=== PATIENT | female | born 1960 | race African-American/Black ===

== ENCOUNTER → 2017-03-15 | Outpatient (CLI) | payer OTHER ==
--- NOTE | 2017-03-15 14:39 | XR ---
EXAMINATION TYPE: XR lumbar spine 2 or 3V DATE OF EXAM: 03/15/2017 COMPARISON: NONE HISTORY: Lumbar strain TECHNIQUE: 3 view lumbar spine FINDINGS: Disc heights are preserved. Vertebral body heights are preserved. Alignment is normal. Ther e 5 lumbar-type vertebral bodies. Pedicles are intact. IMPRESSION: 1. Normal three-view lumbar spine
== END ==
LOC: RADXRMAIN 14:13
PROVIDERS: ATTEND Emergency Medicine
DX: S39.012A Strain of muscle, fascia and tendon of lower back, initial encounter (principal)
CPT/HCPCS: 72100

== ENCOUNTER 2018-07-30 21:05 | Emergency (ER) | payer OTHER ==
[2018-07-30 21:10] VITALS: TEMP 98.6
[2018-07-30 21:40] VITALS: RESP 16
--- NOTE | 2018-07-30 21:41 | ED ---
Chest Pain HPI - General Chief Complaint: Chest Pain Stated Complaint: Chest pressure Time Seen by Provider: 07/30/18 21:17 Source: patient, family Mode of arrival: ambulatory Limitations: no limitations - History of Present Illness Initial Comments: This patient is a 58-year-old woman who presents to be evaluated for substernal chest pain. The patient states that she has not really felt like her usual self for going on 3 weeks. She noted some pains in the right shoulder and into the right arm. She describes them as aching, intermittent, moderate intensity. She states that for 2 weeks she has been having some intermittent substernal pain that she initially thought was indigestion but she now is not sure. She states that it is not related to food. She is not having any sour brash. The patient's had had a heart attack, and prior to that his only complaint was indigestion, so she felt she should be checked to ensure that she was not having heart attack. MD Complaint: chest pain -: week(s) Onset: during rest Pain Location: substernal Severity: moderate Quality: aching Consistency: intermittent Improves With: nothing Worsens With: nothing Treatments Prior to Arrival: none - Related Data Home Medications Medication Instructions Recorded Confirmed Citalopram Hydrobromide [CeleXA] 20 mg PO DAILY 07/30/18 07/30/18 Losartan/Hydrochlorothiazide 1 each PO DAILY 07/30/18 07/30/18 [Losartan-Hctz 100-12.5 mg Tab] buPROPion [Wellbutrin] 75 mg PO BID 07/30/18 07/30/18 metFORMIN HCL [Glucophage Xr] 750 mg PO PC-SUPPER 07/30/18 07/30/18 Allergies Allergy/AdvReac Type Severity Reaction Status Date / Time codeine Allergy Nausea & Verified 07/30/18 21:10 Vomiting Review of Systems ROS Statement: Those systems with pertinent positive or pertinent negative responses have been documented in the HPI. ROS Other: All systems not noted in ROS Statement are negative. Constitutional: Denies: fever, chills Respiratory: Denies: cough, dyspnea Cardiovascular: Reports: chest pain. Denies: palpitations, dyspnea on exertion , orthopnea, edema, syncope Gastrointestinal: Denies: abdominal pain, nausea, vomiting, melena, hematochezia Musculoskeletal: Reports: back pain Skin: Denies: rash Neurological: Denies: weakness, numbness EKG Findings - EKG Results: EKG: interpreted by ERMD, sinus rhythm (Rate 61 bpm), normal axis, normal QRS - Blocks, Verner, Hypertrophy, ST Abn: Repolarization changes or abnormalities: nonspecific abnormality, ST segment, and/or T wave Past Medical History Past Medical History: Diabetes Mellitus, Hypertension History of Any Multi-Drug Resistant Organisms: None Reported Past Surgical History: Section, Cholecystectomy, Hysterectomy Past Psychological History: No Psychological Hx Reported Smoking Status: Current every day smoker Past Alcohol Use History: None Reported Past Drug Use History: None Reported General Exam Limitations: no limitations General appearance: alert, in no apparent distress Head exam: Present: atraumatic, normocephalic Eye exam: Present: normal appearance. Absent: scleral icterus, conjunctival injection Neck exam: Present: normal inspection, full ROM Respiratory exam: Present: normal lung sounds bilaterally. Absent: respiratory distress, wheezes, rales, rhonchi, stridor Cardiovascular Exam: Present: regular rate, normal rhythm, normal heart sounds. Absent: systolic murmur, diastolic murmur GI/Abdominal exam: Present: soft. Absent: distended, tenderness, guarding, rebound, rigid, mass Extremities exam: Present: normal inspection, normal capillary refill. Absent: pedal edema, calf tenderness Back exam: Present: normal inspection. Absent: CVA tenderness (R), CVA tenderness (L) Neurological exam: Present: alert Skin exam: Present: warm, dry, intact, normal color. Absent: rash Course Vital Signs 07/30/18 07/30/18 07/30/18 21:06 21:20 21:30 Temperature 98.6 F Pulse Rate 74 63 Respiratory 20 16 16 Rate Blood Pressure 183/84 O2 Sat by Pulse 100 100 98 Oximetry 07/30/18 07/30/18 07/30/18 22:00 22:30 22:33 Temperature Pulse Rate 59 L 67 55 L Respiratory 16 15 16 Rate Blood Pressure 176/84 O2 Sat by Pulse 97 99 97 Oximetry 07/31/18 00:11 Temperature Pulse Rate 75 Respiratory 16 Rate Blood Pressure 167/84 O2 Sat by Pulse 100 Oximetry Disposition Clinical Impression: Chest pain Disposition: HOME SELF-CARE Condition: Good Instructions: Chest Pain (ED) Is patient prescribed a controlled substance at d/c from ED?: No Referrals: Denise Menezes MD [Primary Care Provider] - 1-2 days
[2018-07-30] MEDS ORDERED: ASPIRIN 81 MG PO STA (21:50)
[2018-07-30 22:00] LABS: Basophils # (A) 0.1 k/uL (0-0.2); Basophils % (A) 1 %; Eosinophils # (A) 0.2 k/uL (0-0.7); Eosinophils % (A) 3 %; HCT 39.1 % (34.0-46.0); HGB 12.8 gm/dL (11.4-16.0); Lymphocytes # (A) 2.9 k/uL (1.0-4.8); Lymphocytes % (A) 43 %; MCH 28.6 pg (25.0-35.0); MCHC 32.8 g/dL (31.0-37.0); MCV 87.3 fL (80.0-100.0); Mean Platelet Volume 7.3; Monocytes # (A) 0.5 k/uL (0-1.0); Monocytes % (A) 7 %; Neutrophils % (A) 44 %; Platelet Count 250 k/uL (150-450); RBC 4.48 m/uL (3.80-5.40); RDW 14.5 % (11.5-15.5); WBC 6.7 k/uL (3.8-10.6)
--- NOTE | 2018-07-30 22:12 | XR ---
EXAMINATION TYPE: XR chest 1V portable DATE OF EXAM: 07/30/2018 COMPARISON: 02/05/2010 HISTORY: Chest pain TECHNIQUE: Single frontal view of the chest is obtained. FINDINGS: Heart and mediastinum are normal. Lungs are clear. Diaphragm is normal. Bony thorax is int act. IMPRESSION: Normal chest. No change.
[2018-07-30 22:15] LABS: Albumin 3.9 g/dL (3.5-5.0); Calcium 9.6 mg/dL (8.4-10.2); Magnesium 1.8 mg/dL (1.6-2.3); Total Bilirubin 0.4 mg/dL (0.2-1.3); Total Protein 6.9 g/dL (6.3-8.2)
[2018-07-30 22:18] LABS: Potassium 4.5 mmol/L (3.5-5.1)
[2018-07-30 22:20] LABS: Creatine Kinase 114 U/L (30-135)
[2018-07-30 22:29] LABS: Partial Thromboplastin Time 22.8 sec (22.0-30.0); Prothrombin Time 10.1 sec (9.0-12.0)
[2018-07-30 22:33] LABS: Creatine Kinase MB 0.8 ng/mL (0.0-2.4); Troponin I <0.012 ng/mL (0.000-0.034)
[2018-07-30 22:36] LABS: D-Dimer 0.8 mg/L FEU (<0.60)
[2018-07-31 00:13] VITALS: BP 167/84; PULSE 75
--- NOTE | 2018-07-31 00:17 | CT ---
EXAMINATION TYPE: CT chest angio for PE DATE OF EXAM: 07/31/2018 COMPARISON: None HISTORY: R/O PE CT DLP: 288.50 mGycm Automated exposure control for dose reduction was used. CONTRAST: CT Chest for pulmonary embolism performed with with IV Contrast, patient injected with 65 mL of Isovu e 370. FINDINGS: There are 3-D post processed images. The lungs are clear of infiltrate. There is no evidence of a pulmonary mass. There is no pleural effu cesar. There is no pericardial effusion. Heart size is normal. Thoracic aorta is intact. There is no evidence of aneurysm or dissection. The ascending aorta measure s 2.8 cm. There is normal contrast opacification of the pulmonary arteries. There are no filling defe cts. There is no mediastinal adenopathy. There are no hilar masses. There is lateral recess stenosis at T11-12 due to facet arthropathy. IMPRESSION: No evidence of pulmonary embolism.
== END 2018-07-31 00:45 | disposition home or self-care (01) ==
LOC: EC 21:05
DX: R07.2 Precordial pain (principal); E11.9 Type 2 diabetes mellitus without complications; I10 Essential (primary) hypertension; F17.200 Nicotine dependence, unspecified, uncomplicated; Z79.84 Long term (current) use of oral hypoglycemic drugs; Z79.899 Other long term (current) drug therapy; Z88.5 Allergy status to narcotic agent
CPT/HCPCS: 36415; 93005; 85379; 80053; 82150; 82550; 82553; 83690; 83735; 84484; 85025; 85610; 85730; 71045; 71275; 99285; Q9967

== ENCOUNTER → 2023-12-03 | Outpatient (CLI) | payer BC ==
--- NOTE | 2023-12-03 15:26 | US ---
EXAMINATION TYPE: US thyroid st tissue head/neck DATE OF EXAM: 12/03/2023 COMPARISON: outside imaging CLINICAL INDICATION: Female, 63 years old with history of E04.2 GOITER; HX goiter, thyroid nodule GLAND SIZE: Right Lobe: 5.8x2.0x2.6 cm Overall Parenchyma: homogeneous Left Lobe: 5.6x2.2x2.3 cm Overall Parenchyma: homogeneous Isthmus Thickness: 0.4 cm NODULES RIGHT: # of nodules measured on right: 0 Several small subcentimeter nodules/ colloid cysts scattered throughout LEFT: # of nodules measured on left: 1 1. 0.6 X 0.8 x 0.4 cm, upper mid, solid or almost completely solid, hypoechoic nodule, which is wid er than tall, with ill-defined margins, without echogenic foci. Several small subcentimeter nodules/ colloid cysts scattered throughout ISTHMUS: # of nodules measured in the isthmus: 0 Bilateral neck scanned, no evidence of lymphadenopathy. Bilateral small subcentimeter thyroid nodules/ colloid cysts scattered throughout. Largest nodular ar ea measured on the left IMPRESSION: 1. Moderately suspicious subcentimeter nodule left lobe thyroid. Consider follow-up in one year. 2017 ACR TI-RADS LEVEL: TR-RADS 4 - Moderately Suspicious: Follow if > 1 cm, FNA if > 1.5 cm *Highest TI-RADS level nodule reported
== END | disposition home or self-care (01) ==
LOC: RADUSWWP 13:56
PROVIDERS: ATTEND Family Medicine
DX: E04.2 Nontoxic multinodular goiter (principal); R22.0 Localized swelling, mass and lump, head
CPT/HCPCS: 76536

== ENCOUNTER → 2023-12-07 | Outpatient (CLI) | payer BC ==
--- NOTE | 2023-12-07 16:17 | BD ---
EXAMINATION TYPE: Axial Bone Density DATE OF EXAM: 12/07/2023 CLINICAL HISTORY: 63 years old Female. ICD-10 CODE: , M85.9 DISORDER OF BONE DENSITY Height: 61 in Weight: 168 lbs FRAX RISK QUESTIONS: History of Fracture in Adulthood: lt wrist fx age 55 Secondary Osteoporosis: 3. Menopause before 45: total hysterectomy age 40 Current Tobacco Use: yes RISK FACTORS HISTORY OF: Hip Fracture (left): age 55 EXAM MEASUREMENTS: Bone mineral densitometry was performed using the [employer] System. Bone mineral density as measured about the Lumbar spine is: ----- L1-L4(G/cm2): 1.131 T Score Values are as follows: ----- L1: 0.1 ----- L2: -0.9 ----- L3: -0.5 ----- L4: -0.4 ----- L1-L4: -0.4 Z Score Values are as follows: ----- L1: 0.6 ----- L2: -0.4 ----- L3: -0.1 ----- L4: 0.1 ----- L1-L4: 0.1 Bone mineral density baseline Bone mineral density about the R hip (g/cm2): 1.101 Bone mineral density about the L hip (g/cm2): 1.048 T Score values are as follows: -----R Neck: 0.2 -----L Neck: -0.2 -----R Total: 0.7 -----L Total: 0.3 Z Score values are as follows: -----R Neck: 0.5 -----L Neck: 0.1 -----R Total: 0.7 -----L Total: 0.3 Bone mineral density baseline FRAX%s: The graph provided illustrates a 4.9% chance for a major osteoporotic fx and a 0.2% chance fo r the hips probability for fx in 10 years time. IMPRESSION: Normal (Values between +1 and -1 indicate normal bone mass). Consider repeating this study in 5 year s or sooner if there is some new clinical indication. NOTE: T-SCORE=SD OF THE YOUNG ADULT MEAN.
--- NOTE | 2023-12-08 18:44 | MM ---
Reason for Exam: Screening (asymptomatic). Last mammogram was performed 7 year(s) and 8 month(s) ago. Patient History: Menarche at age 12. First Full-Term at age 19. Left ovary removed at age 41. Right ovary removed at age 41. Hysterectomy at age 41. Postmenopausal. Mother had breast cancer, age 40. Risk Values: Kyra 5 year model risk: 2.5%. NCI Lifetime model risk: 10.0%. Prior Study Comparison: 04/28/2016 Bilateral Diagnostic Mammogram, [facility]. Tissue Density: The breasts are heterogeneously dense, which may obscure small masses. Findings: Analyzed By CAD. There is no suspicious group of microcalcifications or new suspicious mass in either breast. Overall Assessment: Negative, BI-RAD 1 Management: Screening Mammogram of both breasts in 1 year. . Patient should continue monthly self-breast exams. A clinical breast exam by your physician is recommended on an annual basis. This exam should not preclude additional follow-up of suspicious palpable abnormalities. Note on Kyra scores and lifetime risk: 1. A Kyra score greater than 3% is considered moderate risk. If this is the case, consider specialist referral to assess eligibility for a risk reducing agent. 2. If overall lifetime risk for the development of breast cancer is 20% or higher, the patient may qualify for future screening with alternating mammogram and breast MRI. Electronically signed and approved by: Hamlet Donahue M.D. Radiologist
== END | disposition home or self-care (01) ==
LOC: RADMAMWWP 14:52
PROVIDERS: ATTEND Family Medicine
DX: Z12.31 Encounter for screening mammogram for malignant neoplasm of breast (principal); M85.9 Disorder of bone density and structure, unspecified; Z80.3 Family history of malignant neoplasm of breast; Z78.0 Asymptomatic menopausal state
CPT/HCPCS: 77063; 77067; 77080

== ENCOUNTER → 2024-12-04 | Outpatient (CLI) | payer BC ==
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
== END | disposition home or self-care (01) ==
LOC: RADCTMAIN 15:58
PROVIDERS: ATTEND Otolaryngology
DX: S02.2XXA Fracture of nasal bones, initial encounter for closed fracture (principal); S09.93XA Unspecified injury of face, initial encounter
CPT/HCPCS: 70486